=== PATIENT | male | born 1975 | race Caucasian/White ===

== ENCOUNTER 2020-05-03 08:22 | Outpatient (REF) | payer OTHER, SELFPAY ==
--- NOTE | 2020-05-03 | US_ITS ---
EXAMINATION: US RETROPERITONEAL LIMITED (RENAL ONLY) CLINICAL INFORMATION: Renal stones. COMPARISON: Renal ultrasound dated 04/28/2019, CT scan of the abdomen and pelvis dated 10/28/2012. TECHNIQUE: Real-time imaging of the kidneys. FINDINGS: RIGHT KIDNEY: 10.8 x 6.1 x 5.6 cm (SAG x AP x TRV). The kidney is normal in size, contour, and echogenicity. Renal cortical thickness is normal. No calculi or focal parenchymal lesions. No hydronephrosis. LEFT KIDNEY: 12.4 x 6.4 x 5.2 cm (SAG x AP x TRV). The kidney is normal in size, contour, and echogenicity. Renal cortical thickness is normal. No calculi or focal parenchymal lesions. No hydronephrosis. US/US renal BI IMPRESSION: No significant renal abnormality.
== END 2020-05-03 08:23 | disposition home or self-care (01) ==
LOC: HO.US 08:22
PROVIDERS: Visit Provider Urology
DX: N20.0 Calculus of kidney (principal)
CPT/HCPCS: 76775

== ENCOUNTER → 2020-05-05 11:57 | Outpatient (BNVA) | payer OTHER, SELFPAY | PROVIDERS: PCP Internal Medicine; Referring Provider Internal Medicine; Visit Provider Urology | DX: Z76.89 Persons encountering health services in other specified circumstances (principal) ==

== ENCOUNTER 2021-05-21 08:34 | Outpatient (REF) | payer OTHER, SELFPAY ==
--- NOTE | ~2021-05-21 | US_ITS ---
EXAMINATION: US RETROPERITONEAL LIMITED (RENAL ONLY) CLINICAL INFORMATION: Calculus of kidney. COMPARISON: Bilateral renal ultrasound dated 05/03/2020. Renals only ultrasound dated 04/28/2019. KUB dated 08/20/2017 and 02/07/2016. CT abdomen and pelvis without contrast dated 10/28/2012. TECHNIQUE: Real-time imaging of the kidneys. FINDINGS: RIGHT KIDNEY: 10.7 x 5.1 x 5.7 cm (SAG x AP x TRV). The kidney is normal in size, contour, and echogenicity. Renal cortical thickness is normal. No calculi or focal parenchymal lesions. No hydronephrosis. LEFT KIDNEY: 11.7 x 6.4 x 5.7 cm (SAG x AP x TRV). The kidney is normal in size, contour, and echogenicity. Renal cortical thickness is normal. No calculi or focal parenchymal lesions. No hydronephrosis. US/US renal BI IMPRESSION: Unremarkable renal ultrasound..
== END 2021-05-21 08:35 | disposition home or self-care (01) ==
LOC: HO.HMGCX 08:34
PROVIDERS: PCP Internal Medicine; Visit Provider Urology
DX: N20.0 Calculus of kidney (principal)
CPT/HCPCS: 76775

== ENCOUNTER → 2021-06-05 09:06 | Outpatient (BNVA) | payer OTHER, SELFPAY | PROVIDERS: PCP Internal Medicine; Visit Provider Urology ==

== ENCOUNTER 2022-04-02 10:00 | Outpatient (REF) | payer OTHER, SELFPAY ==
--- NOTE | ~2022-04-02 | US_ITS ---
EXAMINATION: US RETROPERITONEAL LIMITED (RENAL ONLY) CLINICAL INFORMATION: Calculus of kidney. COMPARISON: Renal ultrasound 05/21/2021 and 05/03/2020. X-ray KUB 08/20/2017 and 02/07/2016. CT abdomen and pelvis 10/28/2012. TECHNIQUE: Real-time imaging of the kidneys. FINDINGS: RIGHT KIDNEY: 10.6 x 5.4 x 5.8 cm (SAG x AP x TRV). The kidney is normal in size, contour, and echogenicity. Renal cortical thickness is normal. No calculi or focal parenchymal lesions. No hydronephrosis. LEFT KIDNEY: 11.2 x 5.7 x 5.3 cm (SAG x AP x TRV). The kidney is normal in size, contour, and echogenicity. Renal cortical thickness is normal. No renal calculi or hydronephrosis. There is an anechoic cyst in the lower pole measuring 1.1 x 0.66 x 1.0 cm. The cyst is new since the previous exam 05/22/2021. US/US renal BI IMPRESSION: 1. Small anechoic cyst lower pole left kidney. 2. There are no echogenic stones or hydronephrosis.
== END 2022-04-02 10:01 | disposition home or self-care (01) ==
LOC: HO.HMGCX 10:00
PROVIDERS: PCP Internal Medicine; Visit Provider Urology
DX: N20.0 Calculus of kidney (principal)
CPT/HCPCS: 76775

== ENCOUNTER 2023-05-12 08:32 | Outpatient (REF) | payer OTHER, SELFPAY ==
--- NOTE | ~2023-05-12 | US_ITS ---
EXAMINATION: US RETROPERITONEAL LIMITED (RENAL ONLY) CLINICAL INFORMATION: Calculus of kidney. COMPARISON: Ultrasound retroperitoneal limited 04/02/2022 and 05/21/2021. X-ray abdomen KUB 08/20/2017 and 02/07/2016. CT abdomen and pelvis without contrast 10/28/2012. TECHNIQUE: Real-time imaging of the kidneys. FINDINGS: RIGHT KIDNEY: 10.9 x 5.3 x 5.9 cm (SAG x AP x TRV). The kidney is normal in size, contour, and echogenicity. Renal cortical thickness is normal. No calculi or focal parenchymal lesions. No hydronephrosis. LEFT KIDNEY: 10.9 x 6.0 x 5.6 cm (SAG x AP x TRV). The kidney is normal in size, contour, and echogenicity. Renal cortical thickness is normal. No renal calculi or hydronephrosis. 1.3 x 1.3 x 1.2 cm lower pole cyst previously measured 1.1 x 0.6 x 1.0 cm. US/US renal BI IMPRESSION: As clinically questioned, no sonographic evidence of renal calculi. Nonhydronephrotic kidneys. 1.3 cm left lower pole renal cyst.
== END 2023-05-12 08:33 | disposition home or self-care (01) ==
LOC: HO.HMGCX 08:32
PROVIDERS: PCP Internal Medicine; Visit Provider Urology
DX: N20.0 Calculus of kidney (principal)
CPT/HCPCS: 76775

== ENCOUNTER 2023-07-04 10:10 | Outpatient (AMB) | payer OTHER, SELFPAY ==
--- NOTE | 2023-07-04 10:11 | A.OFFVIS_ITS ---
Intake Intake Visit Reasons: US results(set) Intake Note: Patient is Present for Telephone Follow Up Ultrasound Urology Med: None Antibiotic Allergy: None Blood Thinner: None Allergies No Known Allergies Allergy (Verified 07/04/23 10:13) Medication List - Last Reconciled 07/04/23 by Francois Alanis MD albuterol sulfate 90 mcg/actuation 2 puffs PO Q6H PRN HPI HPI Comments History of Present Illness Details Jose Cruz is a pleasant male. He is a patient of Dr. Roach. He is seen for the following urologic conditions - nephrolithiasis Telemedicine evaluation 15 minutes consultation Video Yearly evaluation Discussed ultrasound results - no evidence of stones Also aims for 3 L fluid intake daily Continues with lemon therapy Nephrolithiasis Previously diagnosed with Medullary sponge kidney Has had ESWL in the past Continues with imaging surveillance - 05/05 renal ultrasound with no evidenc e of stones - 06/05 renal ultrasound with no stones - 06/07 renal ultrasound no evidence of stones Continue with oral intake, lemon therapy, interval imaging [facility] Medical History Renal stones Infertility male Surgical History History of surgery Review of Systems Const All systems reviewed & are unremarkable except as noted in HPI and below Reports no additional complaints Resp Reports no additional complaints GI Reports no additional complaints Reports as per HPI Musc Reports no additional complaints Physical Exam Telemedicine evaluation Appropriate responses Regular breathing rate and rhythm HEENT Head: Yes normal to inspection Ears: hearing grossly normal bilaterally Eyes General: appearance normal, both eyes and all related structures Neck Neck: Yes normal visual inspection Chest Chest palpation & inspection: normal inspection of the chest Resp Effort & Inspection: normal respiratory effort and able to speak in complete sentences Assessment & Plan Assessment & Plan (1) Nephrolithiasis: Comment: Medullary sponge kidney - prior ESWL and ureteroscopy Code(s): N20.0 - Calculus of kidney Plan US yearly Orders: Orders US renal BI 364 Days N20.0 - Calculus of kidney Patient Instructions: Imaging studies, laboratory and physical exam results were discussed and reviewed in detail. No major barriers to patient understanding were identified. An opportunity to ask questions regarding the treatment plan was provided. All questions were answered. The patient expressed understanding and agreement with the above treatment plan. The patient is aware they should contact our office by phone for worsening of their current condition or the appearance of new urologic symptoms. Compliance is encouraged with any medications and followup testing that is ordered. It is a privilege to participate in the urologic care of your patient. If you have any questions or concerns regarding treatment for the above conditions, or other urologic issues, please do not hesitate to contact me. The office telephone contact is [phone]. This note is constructed using voice recognition software. While every effort has been made to ensure accuracy rn telemetry errors may have been included. Yours sincerely, Dr Francois Alanis MD, [facility] - Urology Providers of Expert, Compassionate Care for the Genitourinary System Telehealth Telehealth Location of provider rendering services: practice address Location of patient: address on file Patient Identification confirmed using: Name, : Yes Telehealth method: video Patient verbally consented to treatment: Yes Patient verbally consented to billing insurance company: Yes Patient informed of any privacy concerns related to visit: Yes Coding Level of Care Code Tele Est Pt Level 4 (69654) Diagnoses Nephrolithiasis N20.0
== END 2023-07-04 11:21 | disposition home or self-care (01) ==
LOC: HO.HUSH 10:10
PROVIDERS: PCP Internal Medicine; Visit Provider Urology
DX: N20.0 Calculus of kidney (principal)
CPT/HCPCS: 99213

== ENCOUNTER → 2023-07-04 10:10 | Outpatient (BNVA) | payer OTHER, SELFPAY | PROVIDERS: PCP Internal Medicine; Visit Provider Urology ==

== ENCOUNTER 2024-06-21 08:30 | Outpatient (REF) | payer OTHER, SELFPAY ==
--- NOTE | ~2024-06-21 | US_ITS ---
CLINICAL HISTORY: N20.0 - Calculus of kidney US Renal Comparison: None Findings: Right kidney normal size and echotexture, 11.5 cm length. Left kidney normal size and echotexture, 12.4 cm length. Simple 16 mm left renal cyst and mild bilateral renal sinus fat hypertrophy. Otherwise unremarkable kidneys without evidence of hydro nephrosis Normal color Doppler. IMPRESSION: No hydronephrosis or sonographic evidence of renal calculus This document has been electronically signed by: Clementina Henson MD on 06/22/2024 10:25:57
== END 2024-06-21 08:31 | disposition home or self-care (01) ==
LOC: HO.HMGCX 08:30
PROVIDERS: PCP Internal Medicine; Visit Provider Urology
DX: N20.0 Calculus of kidney (principal)
CPT/HCPCS: 76775

== ENCOUNTER → 2024-06-21 08:33 | Outpatient (BNV) | payer OTHER, SELFPAY | PROVIDERS: PCP Internal Medicine; Visit Provider Radiology Diagnostic Radiology | DX: N20.0 Calculus of kidney (principal) | CPT/HCPCS: 76775 ==

== ENCOUNTER 2024-07-06 08:44 | Outpatient (AMB) | payer OTHER, SELFPAY ==
--- NOTE | 2024-07-06 08:45 | A.OFFVIS_ITS ---
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 He is a patient of Dr. Roach. He is seen for the following urologic conditions - nephrolithiasis Telemedicine Evaluation 15 min Consultation [id number] Andrea Video Yearly evaluation Discussed ultrasound results - no evidence of stones Also aims for 3 L fluid intake daily Continues with lemon therapy P.r.n. follow-up Nephrolithiasis Previously diagnosed with Medullary sponge kidney Has had ESWL in the past Continues with imaging surveillance - 05/05 renal ultrasound with no evidence of stones - 06/05 renal ultrasound with no stones - 06/07 renal ultrasound no evidence of stones - 05/09 renal ultrasound no evidence of stones Continue with oral intake, lemon therapy, interval imaging PFSH Medical History Renal stones Infertility male Surgical History History of surgery Review of Systems Const All systems reviewed & are unremarkable except as noted in HPI and below Reports no additional complaints Resp Reports no additional complaints GI Reports no additional complaints Reports as per HPI Musc Reports no additional complaints Physical Exam Telemedicine evaluation Appropriate responses Regular breathing rate and rhythm HEENT Head: Yes normal to inspection Ears: hearing grossly normal bilaterally Eyes General: appearance normal, both eyes and all related structures Neck Neck: Yes normal visual inspection Chest Chest palpation & inspection: normal inspection of the chest Resp Effort & Inspection: normal respiratory effort and able to speak in complete sentences Telehealth Telehealth Telehealth Platform: [employer] Location of provider rendering services: practice address Location of patient: address on file Patient Identification confirmed using: Name, : Yes Telehealth method: video Patient verbally consented to treatment: Yes Patient verbally consented to billing insurance company: Yes Patient informed of any privacy concerns related to visit: Yes Minutes spent on Phone/Video with Pt.: 15 Assessment & Plan Assessment & Plan (1) Nephrolithiasis: Comment: Medullary sponge kidney - prior ESWL and ureteroscopy Code(s): N20.0 - Calculus of kidney Category: Medical Plan P.r.n. follow-up Patient Instructions: Imaging studies, laboratory and physical exam results were discussed and reviewed in detail. No major barriers to patient understanding were identified. An opportunity to ask questions regarding the treatment plan was provided. All questions were answered. The patient expressed understanding and agreement with the above treatment plan. The patient is aware they should contact our office by phone for worsening of their current condition or the appearance of new urologic symptoms. Compliance is encouraged with any medications and followup testing that is ordered. It is a privilege to participate in the urologic care of your patient. If you have any questions or concerns regarding treatment for the above conditions, or other urologic issues, please do not hesitate to contact me. The office telephone contact is [phone]. This note is constructed using voice recognition software. While every effort has been made to ensure accuracy brake repairer errors may have been included. Yours sincerely, Dr Francois Alanis MD, [facility] - Urology Providers of Expert, Compassionate Care for the Genitourinary System Coding Level of Care Code Tele Est Pt Level 4 (68828) Diagnoses Nephrolithiasis N20.0
== END 2024-07-06 09:23 | disposition home or self-care (01) ==
LOC: HO.HUSH 08:44
PROVIDERS: PCP Internal Medicine; Visit Provider Urology
DX: N20.0 Calculus of kidney (principal)
CPT/HCPCS: 99214